=== PATIENT | female | born 1970 | race Caucasian/White ===

== ENCOUNTER → 2019-01-23 | Outpatient (CLI) | payer BC | LOC: COL.RAD 10:07 | DX: R10.11 Right upper quadrant pain (principal) | CPT/HCPCS: A9537; J2805 ==

== ENCOUNTER 2021-07-28 08:53 | Outpatient (CLI) | payer BC ==
[2021-07-28] VITALS (15 sets, daily range): BP systolic 106–141; BP diastolic 63–101; PULSE 61–80; TEMP 97.8
[~2021-07-28] VITALS: Ht 152.4 cm; Wt 83.6 kg
[~2021-07-28 08:53] MED LIST: MICARDIS HCT 121 TAB PO; SYNTHROID0.075 MG/T PO; XANAX .25M0.25 MG/TA PO
--- NOTE | 2021-07-28 10:15 | NUR ---
Pt to scanner per ambulation. Pt positioned in prone position on CT table. Monitors applied and O2 on at 2l/nc.
--- NOTE | 2021-07-28 10:35 | NUR ---
Specimen obtained and placed in formalin by Dr Worthy. Specimen labeled.
--- NOTE | 2021-07-28 10:50 | NUR ---
Pt returned from procedure,report from Nicola Mathews.
--- NOTE | 2021-07-28 12:27 | NUR ---
Discharge instructions given to pt.pt verbalizes understanding.
--- NOTE | 2021-07-28 12:30 | NUR ---
Pt escorted out via wheelchair by this nurse.
== END 2021-07-28 13:12 ==
LOC: COL.RAD 08:53
DX: R91.8 Other nonspecific abnormal finding of lung field (principal)
CPT/HCPCS: J2250; J3010

== ENCOUNTER 2021-08-07 15:12 | Outpatient (RCR) | payer BC | END 2021-08-12 | disposition home or self-care (01) | LOC: COL.RAD | DX: R91.8 Other nonspecific abnormal finding of lung field (principal); R06.02 Shortness of breath ==